=== PATIENT | female | born 1975 ===

== ENCOUNTER 2017-11-22 05:17 | Emergency (ER) | payer OTHER ==
[2017-11-22] MEDS ORDERED: LIDOCAINE HCL 1% MPF 30 SOL ONE (05:27)
[2017-11-22] MEDS ORDERED: SODIUM CHLORIDE 0.9% 1000 ML SOL IV SCH ×2 (05:30→06:00)
[2017-11-22] MEDS ORDERED: LORAZEPAM 2 MG/ML SOL ONE (05:40)
[2017-11-22] MEDS ORDERED: LORAZEPAM 2 MG/ML SOL IV ONE (05:40)
[2017-11-22 05:45] LABS: BASOPHILS % (AUTO) 1 % (0-3); EOSINOPHILS % (AUTO) 1 % (0-9); HEMATOCRIT 35 % (35-47); HEMOGLOBIN 12.3 gm/dl (12.0-15.5); LYMPHOCYTES % (AUTO) 42.9 % (10-50); MEAN CORPUSCULAR HEMOGLOBIN 30.7 pg (27.0-32.0); MEAN CORPUSCULAR HGB CONC 35.1 gm/dl (32.0-36.0); MEAN CORPUSCULAR VOLUME 88 fL (81-99); NEUTROPHILS % (AUTO) 48.6 % (37-80)
[2017-11-22] MEDS ORDERED: SODIUM CHLORIDE 0.9% FLUSH 10 ML SOL IV PRN (06:03)
[2017-11-22 06:07] LABS: ACETAMINOPHEN < 2 ug/ml (10-30); ALBUMIN 3.8 gm/dl (3.4-5.0); ALKALINE PHOSPHATASE 93 IU/L (46-116); ALT 21 IU/L (14-63); AST 17 IU/L (15-37); BILIRUBIN,TOTAL 0.1 mg/dl (0.2-1.0); BLOOD UREA NITROGEN 13 mg/dl (7-18); CALCIUM 8.6 mg/dl (8.5-10.1); CARBON DIOXIDE 25.3 mEq/L (21-32); CHLORIDE 105 mMol/L (98-107); CREATININE 0.87 mg/dl (0.60-1.00); GLOM FILT RATE 72 mL/min (>60); GLUCOSE 127 mg/dl (74-106); POTASSIUM 3.7 mMol/L (3.5-5.1); SODIUM 142 mMol/L (136-145)
[2017-11-22 06:08] LABS: ALCOHOL 0.313 gm/dl (0.000-0.08)
[2017-11-22] MEDS ORDERED: SODIUM CHLORIDE 0.9% 1000ML 1,000 ML IV ONE ×2 (07:15→10:00)
[2017-11-22 08:27] LABS: AMPHETAMINES NEGATIVE (NEGATIVE); BARBITUATES NEGATIVE (NEGATIVE); BENZODIAZEPINES NEGATIVE (NEGATIVE); CANNABINOL(THC) NEGATIVE (NEGATIVE); COCAINE(COC) NEGATIVE (NEGATIVE); METHADONE NEGATIVE (NEGATIVE); METHAMPHETAMINES NEGATIVE (NEGATIVE); OPIATES(OP13) NEGATIVE (NEGATIVE); OXYCODONE(OXY) NEGATIVE (NEGATIVE); PROPOXYPHENE(PPX) NEGATIVE (NEGATIVE); TRICYCLIC ANTIDEPRESSANTS NEGATIVE (NEGATIVE)
[2017-11-22 09:43] VITALS: O2SAT 97
[2017-11-22 14:39] VITALS: BP 127/81; PULSE 80; RESP 15; TEMP 97.2
== END 2017-11-22 14:36 | disposition short-term general hospital (02) ==
LOC: ED 05:17
DX: F10.129 Alcohol abuse with intoxication, unspecified (principal)
CPT/HCPCS: 80053; 80305; 80307; 85025; 96365; 96366; 96374; 99284; 99285; J2060; J2001

== ENCOUNTER 2018-01-19 15:58 | Inpatient (IN) | payer OTHER ==
[2018-01-19 17:26] LABS: ABO O; ANTIBODY SCREEN Negative; RH TYPE Positive; UNIT TYPE O POSITIVE
[2018-01-19 17:27] LABS: UNIT TYPE O POSITIVE
[2018-01-19] MEDS: SODIUM CHLORIDE 0.9% 1000ML 1,000 ML IV SCH ×2 (19:41→22:41)
[2018-01-19] MEDS: SODIUM CHLORIDE 0.9% FLUSH 10 ML SOL IV PRN (20:05)
[2018-01-19] MEDS: PANTOPRAZOLE SODIUM 40 MG/10 ML PDS IV SCH (20:05)
[2018-01-20] MEDS: SODIUM CHLORIDE 0.9% 1000ML 1,000 ML IV SCH ×3 (04:28→19:46)
[2018-01-20 07:30] LABS: CALCIUM 7.7 mg/dl (8.5-10.1); CARBON DIOXIDE 25.2 mEq/L (21-32); CREATININE 0.63 mg/dl (0.60-1.00); POTASSIUM 3.8 mMol/L (3.5-5.1)
[2018-01-20 07:32] LABS: BASOPHILS % (AUTO) 1 % (0-3); EOSINOPHILS % (AUTO) 1 % (0-9); HEMATOCRIT 30 % (35-47); HEMOGLOBIN 9.7 gm/dl (12.0-15.5); LYMPHOCYTES % (AUTO) 30.1 % (10-50); MEAN CORPUSCULAR HEMOGLOBIN 30.5 pg (27.0-32.0); MEAN CORPUSCULAR VOLUME 92 fL (81-99); MONOCYTES % (AUTO) 6.3 % (0-12); NEUTROPHILS % (AUTO) 61.3 % (37-80)
[2018-01-20] MEDS ORDERED: ACETAMINOPHEN 325 MG PO PRN (08:03)
[2018-01-20] MEDS: PANTOPRAZOLE SODIUM 40 MG/10 ML PDS IV SCH (08:49)
[2018-01-20] MEDS: FERROUS GLUCONATE 324 MG TABLET PO SCH ×3 (08:51→21:21)
[2018-01-20] MEDS: ZOLPIDEM TARTRATE 5 MG TAB PO PRN (21:23)
[2018-01-21] MEDS: SODIUM CHLORIDE 0.9% 1000ML 1,000 ML IV SCH ×2 (05:48→16:44)
[2018-01-21 07:09] LABS: BASOPHILS % (AUTO) 1 % (0-3); EOSINOPHILS % (AUTO) 3 % (0-9); HEMATOCRIT 26 % (35-47); HEMOGLOBIN 8.7 gm/dl (12.0-15.5); MEAN CORPUSCULAR HGB CONC 33.6 gm/dl (32.0-36.0); MEAN CORPUSCULAR VOLUME 92 fL (81-99); MONOCYTES % (AUTO) 6.7 % (0-12); NEUTROPHILS % (AUTO) 47.1 % (37-80)
[2018-01-21] MEDS ORDERED: SODIUM CHLORIDE 0.9% FLUSH 10 ML SOL IV PRN (07:57)
[2018-01-21] MEDS: FERROUS GLUCONATE 324 MG TABLET PO SCH ×3 (09:36→21:42)
[2018-01-21] MEDS: PANTOPRAZOLE SODIUM 40 MG ECT PO SCH ×2 (09:37→12:56)
[2018-01-21 09:48] LABS: UNIT TYPE O POSITIVE
[2018-01-21 09:49] LABS: UNIT TYPE O POSITIVE
[2018-01-21] MEDS: SODIUM CHLORIDE 0.9% FLUSH 10 ML SOL IV PRN (16:44)
[2018-01-21] MEDS: ZOLPIDEM TARTRATE 5 MG TAB PO PRN (21:43)
[2018-01-21 23:56] VITALS: TEMP 98.2
[2018-01-22] MEDS ORDERED: SODIUM CHLORIDE 0.9% FLUSH 10 ML SOL IV SCH
[2018-01-22 07:35] LABS: BASOPHILS % (AUTO) 1 % (0-3); EOSINOPHILS % (AUTO) 3 % (0-9); HEMATOCRIT 36 % (35-47); HEMOGLOBIN 11.6 gm/dl (12.0-15.5); LYMPHOCYTES % (AUTO) 31.8 % (10-50); MEAN CORPUSCULAR HEMOGLOBIN 28.9 pg (27.0-32.0); MEAN CORPUSCULAR HGB CONC 31.9 gm/dl (32.0-36.0); MEAN CORPUSCULAR VOLUME 91 fL (81-99); MONOCYTES % (AUTO) 6.1 % (0-12); NEUTROPHILS % (AUTO) 58.5 % (37-80)
[2018-01-22 07:54] VITALS: BP 134/88; PULSE 76; RESP 16; O2SAT 96
[2018-01-22] MEDS: FERROUS GLUCONATE 324 MG TABLET PO SCH (08:45)
[2018-01-22] MEDS: PANTOPRAZOLE SODIUM 40 MG ECT PO SCH (08:45)
== END 2018-01-22 10:35 | disposition home or self-care (01) | DRG 253 ==
LOC: ACUTE CARE 16:13
PROVIDERS: ADMIT Family Medicine; ATTEND Family Medicine
PROC: 0DB68ZX Excision of Stomach, Via Natural or Artificial Opening Endoscopic, Diagnostic (ICD-10-PCS; 2018-01-21)
PROC: 30233N1 Transfusion of Nonautologous Red Blood Cells into Peripheral Vein, Percutaneous Approach (ICD-10-PCS; principal; 2018-01-21 10:45)
DX: K92.2 Gastrointestinal hemorrhage, unspecified (principal); R63.0 Anorexia; R12 Heartburn; D50.0 Iron deficiency anemia secondary to blood loss (chronic); K25.9 Gastric ulcer, unspecified as acute or chronic, without hemorrhage or perforation
CPT/HCPCS: 36415; 80048; 85025; 86850; 86900; 86901; 86920; 99001; 99070; P9016; A9270-GY

== ENCOUNTER 2018-07-04 07:33 | Emergency (ER) | payer BC, OTHER ==
[2018-07-04 08:18] VITALS: TEMP 96.1
[2018-07-04] MEDS ORDERED: ONDANSETRON HCL 4 MG/2 ML SOL IV ONE (08:32)
[2018-07-04] MEDS ORDERED: SODIUM CHLORIDE 0.9% 1000ML 1,000 ML IV ONE (08:33)
[2018-07-04] MEDS ORDERED: ONDANSETRON HCL 4 MG/2 ML SOL ONE (08:38)
[2018-07-04 08:53] LABS: HEMATOCRIT 39 % (35-47); HEMOGLOBIN 12.7 gm/dl (12.0-15.5); MEAN CORPUSCULAR HEMOGLOBIN 31.2 pg (27.0-32.0); MEAN CORPUSCULAR HGB CONC 32.3 gm/dl (32.0-36.0); MEAN CORPUSCULAR VOLUME 97 fL (81-99)
[2018-07-04 08:59] LABS: ALBUMIN 3.7 gm/dl (3.4-5.0); BILIRUBIN,TOTAL 0.4 mg/dl (0.2-1.0); CALCIUM 8.1 mg/dl (8.5-10.1); CARBON DIOXIDE 23.9 mEq/L (21-32); CREATININE 0.69 mg/dl (0.60-1.00); POTASSIUM 3.9 mMol/L (3.5-5.1); TOTAL PROTEIN 7.5 gm/dl (6.4-8.2)
[2018-07-04 09:25] LABS: BAND NEUTROPHILS % (MANUAL) 1 %; BASOPHILS % (MANUAL) 0 % (0-3); EOSINOPHILS % (MANUAL) 1 % (0-9); LYMPHOCYTES % (MANUAL) 6 % (10-50); MONOCYTES % (MANUAL) 6 % (0-12); NEUTROPHILS % (MANUAL) 86 % (37-80)
[2018-07-04 09:26] LABS: ANISOCYTOSIS SLIGHT
[2018-07-04 09:28] VITALS: BP 136/86; PULSE 77; RESP 16; O2SAT 99
== END 2018-07-04 10:15 | disposition home or self-care (01) ==
LOC: ED 07:33
DX: K52.9 Noninfective gastroenteritis and colitis, unspecified (principal); E03.9 Hypothyroidism, unspecified
CPT/HCPCS: 80053; 85007; 85027; 96365; 96374; 99282; 99284; J2405